=== PATIENT | female | born 1980 | race Caucasian/White ===

== ENCOUNTER 2018-05-19 09:11 | Emergency (ER) | payer OTHER, MEDICAID ==
[2018-05-19] MEDS: EPINEPHrine 1 MG INJ SC (09:38)
== END 2018-05-19 13:55 | disposition home or self-care (01) ==
LOC: FTE 09:11
DX: T63.441A Toxic effect of venom of bees, accidental (unintentional), initial encounter (principal); F17.210 Nicotine dependence, cigarettes, uncomplicated
CPT/HCPCS: 96372; 99284-25; J0171